=== PATIENT | female | born 1985 ===

== ENCOUNTER 2018-11-09 18:42 | Emergency (ER) | payer OTHER, SELFPAY ==
[2018-11-09 18:51] VITALS: O2SAT 100
[2018-11-09 19:53] VITALS: BP 123/66; PULSE 94; RESP 18; TEMP 98.6
--- NOTE | 2018-11-09 20:06 | ED PDOC ---
HPI: Headache Time Seen by Provider: 11/09/18 19:19 Chief Complaint (Nursing): Headache Chief Complaint (Provider): Headache History Per: Patient History/Exam Limitations: no limitations Onset/Duration Of Symptoms: Days (3x) Current Symptoms Are (Timing): Still Present Severity: Moderate Additional Complaint(s): 32 year old female () with no pertinent past medical history presents to the ED for an evaluation of nausea, headaches, and dizziness intermittent for 3x days. Patient is unaware of her status. Patient denies having abdominal pain, vaginal bleeding, or vaginal discharge. PMD: None provided Past Medical History Reviewed: Historical Data, Nursing Documentation, Vital Signs Vital Signs: Last Vital Signs Temp 98.6 F 11/09/18 19:25 Pulse 94 H 11/09/18 19:25 Resp 18 11/09/18 19:25 BP 123/66 11/09/18 19:25 Pulse Ox 100 11/09/18 19:25 GIOVANI Report Viewed: Yes - Medical History PMH: No Chronic Diseases - Surgical History Surgical History: No Surg Hx - Family History Family History: States: No Known Family Hx - Social History Current smoker - smoking cessation education provided: No Alcohol: None Drugs: Denies - Home Medications Home Medications: Ambulatory Orders Medication Instructions Recorded DiphenhydrAMINE [Benadryl] 25 mg PO Q6 PRN #30 cap 04/16/16 Albuterol HFA [Ventolin HFA 90 1 puff IH ASDIR #1 unit 07/11/16 mcg/actuation (8 g)] Benzonatate 200 mg PO TID PRN #20 capsule 07/11/16 - Allergies Allergies/Adverse Reactions: Allergies Allergy/AdvReac Type Severity Reaction Status Date / Time No Known Allergies Allergy Verified 02/16/16 10:44 Review of Systems ROS Statement: Except As Marked, All Systems Reviewed And Found Negative Gastrointestinal: Positive for: Nausea. Negative for: Abdominal Pain Genitourinary Female: Negative for: Vaginal Discharge, Vaginal Bleeding Neurological: Positive for: Headache, Dizziness Physical Exam - Reviewed Nursing Documentation Reviewed: Yes Vital Signs Reviewed: Yes - Physical Exam Appears: Positive for: Well, Non-toxic, No Acute Distress Head Exam: Positive for: ATRAUMATIC, NORMOCEPHALIC Skin: Positive for: Normal Color, Warm, Dry Eye Exam: Positive for: Normal appearance Cardiovascular/Chest: Positive for: Regular Rate, Rhythm Respiratory: Positive for: Normal Breath Sounds Gastrointestinal/Abdominal: Positive for: Normal Exam, Soft. Negative for: Tenderness Neurologic/Psych: Positive for: Alert, Oriented (3x) - ECG O2 Sat by Pulse Oximetry: 100 (RA) Pulse Ox Interpretation: Normal Medical Decision Making Medical Decision Makin:19 Initial impression: 32 year old female with an early . Initial plan: * upreg * udip * reevaluation positive Patient realizes symptoms are within normal limits for her given her early . Patient requires no further treatment in the ED at this time. Patient is stable for discharge. Patient will follow up with [facility]. Scribe Attestation: Documented by Leatha Rodriguez, acting as a scribe for Steve Vasquez MD. Provider Scribe Attestation: All medical record entries made by the Scribe were at my direction and personally dictated by me. I have reviewed the chart and agree that the record accurately reflects my personal performance of the history, physical exam, medical decision making, and the department course for this patient. I have also personally directed, reviewed, and agree with the discharge instructions and disposition. Disposition - Clinical Impression Clinical Impression: Early stage of - Disposition [facility] Disposition Time: 20:00 Condition: STABLE Instructions: - The First Month, - The Second Month, - The Third Month Forms: [employer] (Pakistani) Print Language: [place]
== END 2018-11-09 20:20 | disposition home or self-care (01) ==
LOC: H.ER 18:42
DX: R51 Headache (principal); Z33.1 Pregnant state, incidental

== ENCOUNTER 2018-11-25 10:24 | Emergency (ER) | payer SELFPAY ==
[2018-11-25 11:05] VITALS: RESP 18
--- NOTE | 2018-11-25 11:55 | ED PDOC ---
HPI: Female Pain Time Seen by Provider: 11/25/18 11:45 Chief Complaint (Nursing): Female Genitourinary Chief Complaint (Provider): VAGINAL BLEEDING/ PREG 8 WKS History Per: Patient History/Exam Limitations: no limitations Onset/Duration Of Symptoms: Days Current Symptoms Are (Timing): Still Present Pain Scale Rating Of: 3 Quality Of Discomfort: Cramping (RIGHT PELVIC CRAMPING) Alleviating Factors: None Additional History Per: Patient Additional Complaint(s): 33 Y/O FEMALE WITH NO MEDICAL HX PRESENTS TO THE ED WITH RIGHT PELVIC CRAMPING SINCE LASTNIGHT AND VAG BLEEDING SINCE 2029. PT REPORTS SHE IS 8 WKS PREG. PT REPORTS BLOOD IS ONLY SEEN UPON WIPING. DENIES URINARY SYMPTOMS, VAG D/C, ITCHINESS OR IRRITATION. PT DENIES ANY HEAVY LIFTING, PT REPORTS JUST HAS BEEN DOING ALOT OF WALKING. PT ACCOMPANIED BY . Abnormal Vaginal Bleeding: Yes Last Menstral Period: 10/03/2018 : 2 Para: 1 Miscarriage: 0 Past Medical History Vital Signs: Last Vital Signs Temp 98.9 F 11/25/18 11:01 Pulse 80 11/25/18 11:01 Resp 18 11/25/18 11:01 BP 110/57 L 11/25/18 11:01 Pulse Ox 98 11/25/18 11:01 - Medical History PMH: No Chronic Diseases - Surgical History Surgical History: No Surg Hx - Family History Family History: States: Unknown Family Hx - Living Arrangements Living Arrangements: With Family - Social History Alcohol: None Drugs: Denies - Home Medications Home Medications: Ambulatory Orders Medication Instructions Recorded DiphenhydrAMINE [Benadryl] 25 mg PO Q6 PRN #30 cap 04/16/16 Albuterol HFA [Ventolin HFA 90 1 puff IH ASDIR #1 unit 07/11/16 mcg/actuation (8 g)] Benzonatate 200 mg PO TID PRN #20 capsule 07/11/16 - Allergies Allergies/Adverse Reactions: Allergies Allergy/AdvReac Type Severity Reaction Status Date / Time No Known Allergies Allergy Verified 02/16/16 10:44 Review of Systems Constitutional: Negative for: Fever Eyes: Negative for: Pain Cardiovascular: Negative for: Chest Pain Respiratory: Negative for: Shortness of Breath Gastrointestinal: Negative for: Nausea Genitourinary Female: Negative for: Dysuria Neurological: Negative for: Weakness Physical Exam - Reviewed Nursing Documentation Reviewed: Yes Vital Signs Reviewed: Yes - Physical Exam Appears: Positive for: Well, Non-toxic, No Acute Distress Head Exam: Positive for: ATRAUMATIC, NORMAL INSPECTION, NORMOCEPHALIC Skin: Positive for: Normal Color, Warm, DRY Eye Exam: Positive for: EOMI, Normal appearance, PERRL ENT: Positive for: Normal ENT Inspection Neck: Positive for: Normal, Painless ROM Cardiovascular/Chest: Positive for: Regular Rate, Rhythm Respiratory: Positive for: CNT, Normal Breath Sounds Pulses-Radial (L): 2+ Pulses-Radial (R): 2+ Gastrointestinal/Abdominal: Positive for: Normal Exam, Soft, Tenderness. Negative for: Mass, Distended Pelvic Exam: Positive for: Blood (8 wks preg, vag bleeding since yesterday 20:30. brown in color, pt only sees blood upon wiping. ). Negative for: Discharge, Lesions, Mass Back: Positive for: Normal Inspection Extremity: Positive for: Normal ROM Neurological/Psych: Positive for: Awake, Alert, Normal Tone - Laboratory Results Result Diagrams: 11/25/18 12:05 11/25/18 12:05 Urine POC: Positive Urine dip results: Positive for: Leukocyte Esterase (TRACE), Blood (MODERATE ). Negative for: Nitrate, Ketones - ECG O2 Sat by Pulse Oximetry: 98 - Progress ED Course And Treament: CBC CMP BETA HCG UA UDIP OB TRANS VAG US 14:58: PT RE-EVALUATED AT THIS TIME. NO INCREASE IN BLEEDING PER PT. CLINICAL FINDINGS EXPLAINED TO BOTH PT AND . INSTRUCTED TO FOLLOW UP WITH [employer] [employer] [facility] IN 2-3 DAYS. NO FURTHER ED WORK UP NEEDED. INSTRUCTED TO ABSTAIN FROM INTERCOURSE UNTIL CLEARED BY [employer] PRODUCT [employer]. PT DISCUSSED WITH DR. CLINTON, PT STABLE TO D/C. PT AND GIVEN RETURN TO ED PRECAUTIONS. Exam Date : 11/25/2018 12:47:35 ( Approved ) Study Comment : Sex / Age : F / 33Y Creator : Balbir Izaguirre MD Dictator : Balbir Izaguirre MD Unarmed Security Guard : Marble Cutter Operator : Balbir Izaguirre MD Approver2 : Report Date : 11/25/2018 14:25:01 My Comment : Date of service: 11/25/2018 PROCEDURE: OB Pelvic Ultrasound HISTORY: VAG BLEED LMP 10/03/2018 COMPARISON: None available. FINDINGS: UTERUS: Single live intrauterine gestation Gestational sac: Sac diameter 3.3 cm equivalent to 8 weeks 2 days. [place]-rump length 15 mm equivalent to 7 weeks 6 days Heart rate: 156 bpm. age (Ultrasound estimated): 8 weeks 1 day Toshia-gestational hemorrhage: None Date of delivery (Ultrasound estimated) : 07/06/2019 3 mm yolk sac identified. Uterus measures 10.6 x 6.1 x 6.7 cm. Normal in size and appearance. CERVIX: Long and closed RIGHT OVARY: Measures 3.1 x 2.1 x 2.5 cm. No mass lesion. Normal flow. Corpus luteum, 1.1 x 2.0 x 2.2 cm. LEFT OVARY: Measures 2.2 x 1.4 x 1.1 cm. No solid mass. Normal flow. FREE FLUID: None. OTHER FINDINGS: None. IMPRESSION: Single live intrauterine gestation of approximately 8 weeks 1 day. No subchorionic hemorrhage. heart rate 156 beats per minute. Right ovarian corpus luteum. Re-evaluation Time: 14:58 Condition: Re-examined Disposition - Clinical Impression Clinical Impression: Threatened in early - Patient ED Disposition Is Patient to be Admitted: No Counseled Patient/Family Regarding: Diagnosis, Need For Followup - Disposition Disposition: Routine/Home Disposition Time: 14:58 Condition: GOOD Additional Instructions: FOLLOW UP WITH [employer] [employer]ODUCT [facility] IN 2-3 DAYS Instructions: Threatened Miscarriage, Bleeding With (DC) Forms: [employer] (Belgian) Print Language: ROMANSH - POHeike Present On Arrival: None
[2018-11-25 12:17] LABS: BASO % 0.4 % (0.0-2.0); EOS # 0.1 K/uL (0.0-0.7); EOS % 1.7 % (0.0-4.0); HEMOGLOBIN 11.8 g/dL (12.0-16.0); LYMPH # 1.9 K/uL (1.0-4.3); MEAN CELL VOLUME 89.3 fl (81.0-99.0); MEAN CORPUSCULAR HEMOGLOBIN 29.8 pg (27.0-31.0); MEAN CORPUSCULAR HGB CONC 33.3 g/dL (33.0-37.0); MEAN PLATELET VOLUME 8.4 fl (7.2-11.7); MONO # 0.5 K/uL (0.0-0.8); NEUT % 65.9 % (50.0-75.0); RBC 3.98 Mil/uL (3.80-5.20); RED CELL DISTRIBUTION WIDTH 13.9 % (11.5-14.5); WHITE BLOOD COUNT 7.5 K/uL (4.8-10.8)
[2018-11-25 12:21] LABS: SQUAMOUS EPITHIAL 6 /hpf (0-5); URINE AMORPHOUS SEDIMENT RARE /ul (<OCC); URINE BACTERIA FEW (<OCC); URINE BILIRUBIN NEGATIVE (NEGATIVE); URINE BLOOD MODERATE (NEGATIVE); URINE CLARITY CLOUDY (Clear); URINE COLOR YELLOW (YELLOW); URINE GLUCOSE (UA) NEG (NEGATIVE); URINE HYALINE CAST 0-2 /hpf (0-2); URINE LEUKOCYTE ESTERASE TRACE Leu/uL (Negative); URINE PROTEIN NEGATIVE (NEGATIVE)
[2018-11-25 12:28] LABS: ALB/GLOB RATIO 1.4 (1.0-2.1); ALBUMIN 4.3 g/dL (3.5-5.0); ALT/SGPT 64 U/L (9-52); AST/SGOT 43 U/L (14-36); BLOOD UREA NITROGEN 11 mg/dl (7-17); CALCIUM 9.6 mg/dL (8.4-10.2); GFR NON-AFRICAN AMERICAN > 60
--- NOTE | 2018-11-25 14:28 | US ---
Date of service: 11/25/2018 PROCEDURE: OB Pelvic Ultrasound HISTORY: VAG BLEED LMP 10/03/2018 COMPARISON: None available. FINDINGS: UTERUS: Single live intrauterine gestation Gestational sac: Sac diameter 3.3 cm equivalent to 8 weeks 2 days. [place]-rump length 15 mm equivalent to 7 weeks 6 days Heart rate: 156 bpm. age (Ultrasound estimated): 8 weeks 1 day Toshia-gestational hemorrhage: None Date of delivery (Ultrasound estimated) : 07/06/2019 3 mm yolk sac identified. Uterus measures 10.6 x 6.1 x 6.7 cm. Normal in size and appearance. CERVIX: Long and closed RIGHT OVARY: Measures 3.1 x 2.1 x 2.5 cm. No mass lesion. Normal flow. Corpus luteum, 1.1 x 2.0 x 2.2 cm. LEFT OVARY: Measures 2.2 x 1.4 x 1.1 cm. No solid mass. Normal flow. FREE FLUID: None. OTHER FINDINGS: None. IMPRESSION: Single live intrauterine gestation of approximately 8 weeks 1 day. No subchorionic hemorrhage. heart rate 156 beats per minute. Right ovarian corpus luteum.
[2018-11-25 16:17] VITALS: BP 116/77; PULSE 84; TEMP 98.8; O2SAT 100
== END 2018-11-25 16:10 | disposition home or self-care (01) ==
LOC: H.ER 10:24
DX: O20.0 Threatened abortion (principal)